=== PATIENT | male | born 1945 | race Caucasian/White ===

== ENCOUNTER → 2018-06-04 06:40 | Outpatient (CLI) | payer OTHER, SELFPAY ==
[2018-06-04 08:18] LABS: Add Manual Diff / Slide Review NO; Basophils Percent Auto 0.3 % (0-2); Eosinophils Percent Auto 1.3 % (2-4); Hematocrit 45.6 % (41-53); Hemoglobin 15.2 g/dL (13.5-17.5); Mean Corpuscular HGB Conc 33.3 % (30-36); Mean Corpuscular Hemoglobin 29.8 PG (26-34); Mean Corpuscular Volume 89.4 fL (80-100); Monocytes Percent Auto 13.4 % (3-14); Neutrophils Absolute Auto 3800 /uL (3000-5900); Platelet Count 166 X10^3/uL (150-400); Red Blood Cell Count 5.11 X10^6/uL (4.5-5.9); Red Cell Distribution Width 14.6 % (11.6-14.8); White Blood Cell Count 6.9 X10^3/uL (4.5-11.0)
[2018-06-04 08:40] LABS: Alanine Aminotransferase 24 IU/L (21-72); Albumin 4.8 g/dL (3.5-5.0); Albumin Globulin Ratio 1.6 (1.0-2.8); Alkaline Phosphatase 64 U/L (38-126); Aspartate Aminotransferase 33 IU/L (17-59); Bilirubin Total 1.4 mg/dL (0.2-1.3); Blood Urea Nitrogen 16 mg/dL (9-20); Calcium 10.1 mg/dL (8.4-10.2); Carbon Dioxide 35 mmol/L (22-32); Chloride 101 mmol/L (98-107); Cholesterol 155 mg/dL (140-199); Estimated Glomerular Filt Rate > 60.0 mL/min (>60); Glucose 91 mg/dL (80-110); HDL Cholesterol 45 mg/dL (40-60); HEMOLYSIS < 15 (0-50); LDL Cholesterol Calculated 98 mg/dL (<100); Potassium 3.9 mmol/L (3.4-5.1); Sodium 146 mmol/L (137-145); Total Protein 7.8 g/dL (6.3-8.2); Triglycerides 62 mg/dL (35-150)
[2018-06-04 09:23] LABS: TSH w/ Reflex to FT4 1.75 uIU/mL (0.47-4.68)
== END ==
PROVIDERS: Visit Provider Family Medicine
DX: E21.3 Hyperparathyroidism, unspecified (principal)
CPT/HCPCS: 36415; 80053; 80061; 84443; 85025

== ENCOUNTER → 2018-07-02 08:11 | Outpatient (CLI) | payer OTHER, SELFPAY ==
--- NOTE | 2018-07-02 08:12 | DI.US.S_ITS ---
PROCEDURE: US ABDOMEN COMPLETE INDICATIONS: elevated bilirubin TECHNIQUE: Real-time scanning was performed of the abdominal and retroperitoneal organs, with image documentation. COMPARISON: [facility], CT, KIDNEY/ URETER/BLADDER, 07/30/2017, 11:40. FINDINGS: Liver: Liver is normal in size and homogeneous in echotexture. Gallbladder: Surgically absent Biliary ducts: Intrahepatic bile ducts are non-dilated. Extrahepatic bile duct caliber measures 8.0 mm. Normal is 6-7 mm or less in diameter, or 10 mm or less post-cholecystectomy. Pancreas: Visualized portions of the pancreas are sonographically normal. Spleen: Spleen is normal in size and homogeneous in echotexture. Kidneys: Kidneys are normal in size and echotexture except for presence of a 8mm echogenic focus at the anterior mid renal cortex on the right,, immediately adjacent to the anterior border of the renal sinus fat without shadowing, potentially a manifestation of a small angiomyolipoma (but review of the prior CT from 07/30/17 suggests that this represents an invagination of renal sinus fat into that area of the cortex). Right kidney measures 10.5 cm long; left kidney measures 12.4 cm long. No hydronephrosis or nephrolithiasis. No solid masses. There is a right sided renal cortical cyst at the inferior cortex measuring up to 2.9 x 2.7 x 2.0 cm Aorta: Visualized aorta is normal in caliber at less than 3 cm. Iliacs: Proximal common iliac arteries are normal in caliber at less than 2.5 cm. IVC: Intrahepatic inferior vena cava is patent. Miscellaneous: No free abdominal fluid. IMPRESSION: No hydronephrosis or nephrolithiasis is found. There is normal appearance of the liver and bile ducts, and the gallbladder is absent. As discussed above there is a non-shadowing echogenic focus involving the anterior cortex abutting the renal sinus fat and on review of the prior CT scan from July of last this appears to represent invagination of a small portion of the renal sinus fat into that area rather than an angiomyolipoma. Dictated by: Raymond Ray M.D. on 07/02/2018 at 9:26 Approved by: Raymond Ray M.D. on 07/02/2018 at 9:31
== END ==
PROVIDERS: Family Provider Internal Medicine; PCP Family Medicine; Visit Provider Family Medicine
DX: R17 Unspecified jaundice (principal); Z86.19 Personal history of other infectious and parasitic diseases
CPT/HCPCS: 76700

== ENCOUNTER → 2019-06-12 06:44 | Outpatient (CLI) | payer OTHER, SELFPAY ==
[2019-06-12 08:13] LABS: Add Manual Diff / Slide Review NO; Basophils Absolute Auto 0 /uL (0-100); Basophils Percent Auto 0.4 % (0-2); Eosinophils Absolute Auto 100 /uL (0-450); Eosinophils Percent Auto 1.1 % (2-4); Lymphocytes Absolute Auto 2100 /uL (1100-4500); Lymphocytes Percent Auto 27.6 % (25-40); Mean Corpuscular HGB Conc 33.3 % (30-36); Monocytes Absolute Auto 1100 /uL (0-900); Monocytes Percent Auto 14.1 % (3-14); Neutrophils Absolute Auto 4300 /uL (1500-7000); Neutrophils Percent Auto 56.8 % (50-75); Platelet Count 173 X10^3/uL (150-400); Red Blood Cell Count 5.33 X10^6/uL (4.5-5.9); Red Cell Distribution Width 14.9 % (11.6-14.8); White Blood Cell Count 7.6 X10^3/uL (4.5-11.0)
[2019-06-12 08:31] LABS: Alanine Aminotransferase 23 IU/L (21-72); Albumin 4.8 g/dL (3.5-5.0); Albumin Globulin Ratio 1.4 (1.0-2.8); Alkaline Phosphatase 71 U/L (38-126); Aspartate Aminotransferase 32 IU/L (17-59); Bilirubin Total 1.7 mg/dL (0.2-1.3); Blood Urea Nitrogen 22 mg/dL (9-20); Calcium 9.7 mg/dL (8.4-10.2); Carbon Dioxide 31 mmol/L (22-32); Chloride 99 mmol/L (98-107); Cholesterol 171 mg/dL (140-199); Estimated Glomerular Filt Rate > 60.0 mL/min (>60); Globulin 3.5 g/dL (1.7-4.1); Glucose 89 mg/dL (80-110); HDL Cholesterol 42 mg/dL (40-60); HEMOLYSIS < 15 (0-50); LDL Cholesterol Calculated 117 mg/dL (<100); Potassium 3.7 mmol/L (3.4-5.1); Sodium 142 mmol/L (137-145); Total Protein 8.3 g/dL (6.3-8.2); Triglycerides 62 mg/dL (35-150)
[2019-06-12 08:58] LABS: Thyroid Stimulating Hormone 1.83 uIU/mL (0.47-4.68)
[2019-06-12 09:12] LABS: Prostate Specific Antigen Scrn < 0.064 ng/mL (0.1-4.0)
== END ==
PROVIDERS: PCP Family Medicine; Visit Provider Family Medicine
DX: E21.3 Hyperparathyroidism, unspecified (principal); I10 Essential (primary) hypertension; Z86.19 Personal history of other infectious and parasitic diseases; Z85.46 Personal history of malignant neoplasm of prostate
CPT/HCPCS: 36415; 80053; 80061; 84443; 85025; G0103

== ENCOUNTER 2019-11-07 10:07 | Day surgery (SDC) | payer OTHER, SELFPAY ==
[2019-11-07 10:25] VITALS: BMI 25.2
[2019-11-07 10:39] VITALS: BP 139/84; PULSE 51; RESP 12; TEMP 35.9; O2SAT 98
[2019-11-07] MEDS: SODIUM CHLORIDE 0.9% 1,000 ML 200 ML IV (10:41)
--- NOTE | 2019-11-07 11:25 | PM.HP.1 ---
History of Present Illness History of Present Illness Date Patient Seen: 11/07/19 Time Patient Seen: 11:26 Chief complaint: [id number] Narrative: This is a 74-year-old man with history of screening colonoscopy 10 years ago which was normal, and a screening colonoscopy 10 years prior to that which was normal. He denies any new symptoms since his last colonoscopy. He denies any hematochezia, melena, unexplained abdominal pain, unexplained weight loss. He says he is otherwise healthy and feels well. ROS: Thirteen system review is otherwise negative other than as mentioned below and in HPI. PE: GENERAL: Well groomed and cooperative. Appears stated age. Answers questions promptly and appropriately. Vital signs noted. HENT: Normocephalic, atraumatic. Hearing intact. Oral mucosa is pink and moist. EYES: Conjunctiva pink, sclera white, no periorbital swelling. CARDIOVASCULAR: Regular rate. No pedal edema. RESPIRATORY: Non-tachypneic, breathing comfortably on room air. GASTROINTESTINAL: Abdomen soft and non-distended GENITALURINARY: No flank tenderness. MUSCULOSKELETAL: Equal tone and mass bilaterally. SKIN: Warm, dry, soft, appropriate color for ethnicity. No other lesions, rashes, or wounds. NEURO: Alert and Oriented X 3. No gross sensory deficits, or cognitive issues. PSYCH: Appropriate affect and mood. Patient History Medical History Hepatitis C (Resolved ~2011) Hyperparathyroidism (Chronic) Hypertension (Chronic ~1994) Kidney stones (Resolved ~2016) Surgical History Anesthesia (Resolved) History of parathyroidectomy (Resolved) Prostate cancer (Resolved ~2003) Status post cholecystectomy (~1974) Family & Social History Family History Mother No problems noted. Social History: household members spouse Tobacco & Substance use: Smoking Status Never smoker alcohol intake current alcohol intake frequency a few times a month Substance Use Type does not use Meds Home Medications and Allergies Home Medications Medication Instructions Recorded Confirmed Type allopurinol 300 mg tablet 300 mg PO DAILY #90 tab 04/11/19 11/07/19 Rx lisinopril 20 1 tab PO DAILY #90 tab 04/11/19 11/07/19 Rx mg-hydrochlorothiazide 25 mg tablet Allergies Allergy/AdvReac Type Severity Reaction Status Date / Time No Known Drug Allergies Allergy Verified 11/07/19 10:20 Exam Vital Signs (past 8 hours): - 11/07/19 10:39 Temperature 96.7 F L Pulse Rate 51 L Respiratory Rate 12 Blood Pressure 139/84 Pulse Oximetry 98 Oxygen Delivery Method Room Air Assessment & Plan Assessment and plan (1) At average risk for colon cancer: Current visit: Yes Status: Acute Assessment & Plan narrative: Risks and benefits of screening colonoscopy and possible polypectomy were discussed with the patient including risk of bleeding, perforation, need for additional procedures, risks of anesthesia. The patient desires to proceed with the colonoscopy procedure. Time Spent With Patient Time with patient: 15-24 minutes
[2019-11-07] MEDS: MIDAZOLAM 5 MG/5 ML VIAL IV (11:51)
[2019-11-07] MEDS: fentaNYL 250 MCG/5 ML INJ IV (11:52)
[2019-11-07 11:53] VITALS: BP 119/74; PULSE 48; RESP 12; TEMP 36.3; O2SAT 96
--- NOTE | 2019-11-07 11:54 | PM.OP.ENDO ---
Operative Date/Time/Diagnoses Date of procedure: 11/07/19 Time of procedure: 11:54 Pre-op diagnosis: Average risk for colon cancer Post-op diagnosis: other (Diverticulosis) Procedure & Clinicians Study performed: Screening colonoscopy Same procedure as scheduled: Yes Indications: Average risk for colon cancer, 10 years since last colonoscopy Surgeon: Kendra Ortega Procedure Notes SCOAP/Timeout: Performed Procedure in detail: The patient was brought to the room and placed in left lateral decubitus position with all bony prominences padded. A time-out was performed and then the patient was given procedural sedation starting with [4] mg of Versed and [100] mcg of fentanyl. A total of 5 mg of Versed and 200 micro g of fentanyl were given for the entire procedure. Vitals were monitored throughout the procedure and remained stable. Once adequately sedated the procedure was begun. A rectal exam was performed revealing [no abnormalities]. The colonoscope was then introduced to the rectum and advanced to the cecum in the usual fashion. []The cecum was identified by the appendiceal orifice, the mucosal tri-fold, and the ileocecal valve. The scope was then retracted while rotating side to side and examining each mucosal fold. Diverticulosis was noticed in the sigmoid colon. No evidence of active her advanced diverticulitis. [] At the conclusion of the procedure retroflexion was performed and [small grade 1-2 internal hemorrhoids without stigmata of bleeding were seen]. The scope was then withdrawn from the rectum the procedure was concluded. The patient tolerated the procedure well and was transferred to the PACU in stable condition. Scope withdrawal time: 8 Sedation minutes: 19 Findings: diverticulosis Specimen(s): none sent Complications: none Impression: Moderate diverticulosis in the sigmoid colon Post-procedure Recommendations: Colonscopy in 10 years Follow up: as needed Disposition: PACU
[2019-11-07 11:58] VITALS: BP 102/74; PULSE 45; RESP 10; O2SAT 96
[2019-11-07 12:03] VITALS: BP 107/70; PULSE 48; RESP 12; O2SAT 98
[2019-11-07 12:20] VITALS: BP 109/66; PULSE 55; RESP 16; TEMP 37; O2SAT 99
== END 2019-11-07 12:30 | disposition home or self-care (01) ==
PROVIDERS: PCP Family Medicine; Referring Provider Surgery; Visit Provider Surgery
PROC: 0DJD8ZZ Inspection of Lower Intestinal Tract, Via Natural or Artificial Opening Endoscopic (ICD-10-PCS; CPT 45378; principal; 2019-11-07 11:30)
DX: Z12.11 Encounter for screening for malignant neoplasm of colon (principal); K57.30 Diverticulosis of large intestine without perforation or abscess without bleeding; K64.0 First degree hemorrhoids
CPT/HCPCS: 45378; 99152; J2250; J3010

== ENCOUNTER → 2020-06-21 06:46 | Outpatient (CLI) | payer OTHER, SELFPAY ==
[2020-06-21 08:16] LABS: Add Manual Diff / Slide Review NO; Basophils Absolute Auto 0 /uL (0-100); Basophils Percent Auto 0.2 % (0-2); Eosinophils Absolute Auto 100 /uL (0-450); Eosinophils Percent Auto 0.9 % (2-4); Hematocrit 45.7 % (41-53); Hemoglobin 14.7 g/dL (13.5-17.5); Lymphocytes Absolute Auto 2100 /uL (1100-4500); Lymphocytes Percent Auto 24.5 % (25-40); Mean Corpuscular HGB Conc 32.1 % (30-36); Mean Corpuscular Hemoglobin 29.2 PG (26-34); Mean Corpuscular Volume 90.7 fL (80-100); Monocytes Absolute Auto 1000 /uL (0-900); Monocytes Percent Auto 11.6 % (3-14); Neutrophils Absolute Auto 5400 /uL (1500-7000); Neutrophils Percent Auto 62.8 % (50-75); Platelet Count 162 X10^3/uL (150-400); Red Blood Cell Count 5.04 X10^6/uL (4.5-5.9); Red Cell Distribution Width 15.2 % (11.6-14.8); White Blood Cell Count 8.7 X10^3/uL (4.5-11.0)
[2020-06-21 08:30] LABS: Alanine Aminotransferase 19 IU/L (<50); Albumin 4.5 g/dL (3.5-5.0); Albumin Globulin Ratio 1.3 (1.0-2.8); Alkaline Phosphatase 65 U/L (38-126); Aspartate Aminotransferase 31 IU/L (17-59); BUN Creatinine Ratio 18.6 (6-22); Bilirubin Total 1.4 mg/dL (0.2-1.3); Blood Urea Nitrogen 19 mg/dL (9-20); Calcium 9.9 mg/dL (8.4-10.2); Carbon Dioxide 34 mmol/L (22-32); Chloride 103 mmol/L (98-107); Cholesterol 164 mg/dL (140-199); Estimated Glomerular Filt Rate > 60.0 mL/min (>60); Globulin 3.4 g/dL (1.7-4.1); Glucose 87 mg/dL (80-110); HDL Cholesterol 41 mg/dL (40-60); HEMOLYSIS < 15 (0-50); LDL Cholesterol Calculated 102 mg/dL (<100); Potassium 3.6 mmol/L (3.4-5.1); Sodium 143 mmol/L (137-145); Total Protein 7.9 g/dL (6.3-8.2); Triglycerides 104 mg/dL (35-150)
[2020-06-21 09:05] LABS: Prostate Specific Antigen Scrn < 0.064 ng/mL (0.1-4.0)
== END ==
PROVIDERS: PCP Family Medicine; Referring Provider Family Medicine; Visit Provider Family Medicine
DX: E21.3 Hyperparathyroidism, unspecified (principal); I10 Essential (primary) hypertension; Z85.46 Personal history of malignant neoplasm of prostate; Z86.19 Personal history of other infectious and parasitic diseases
CPT/HCPCS: 36415; 80053; 80061; 85025; G0103

== ENCOUNTER → 2021-07-11 06:41 | Outpatient (CLI) | payer OTHER, SELFPAY ==
[2021-07-11 07:59] LABS: Add Manual Diff / Slide Review NO; Basophils Absolute Auto 0 /uL (0-100); Basophils Percent Auto 0.5 % (0-2); Eosinophils Absolute Auto 100 /uL (0-450); Eosinophils Percent Auto 1.5 % (2-4); Hematocrit 43.5 % (41-53); Hemoglobin 14.3 g/dL (13.5-17.5); Lymphocytes Absolute Auto 2300 /uL (1100-4500); Lymphocytes Percent Auto 36.5 % (25-40); Mean Corpuscular Hemoglobin 29.3 PG (26-34); Mean Corpuscular Volume 88.8 fL (80-100); Monocytes Absolute Auto 800 /uL (0-900); Neutrophils Absolute Auto 3100 /uL (1500-7000); Neutrophils Percent Auto 49.5 % (50-75); Platelet Count 169 X10^3/uL (150-400); Red Cell Distribution Width 14.8 % (11.6-14.8); White Blood Cell Count 6.3 X10^3/uL (4.5-11.0)
[2021-07-11 08:14] LABS: Alanine Aminotransferase 20 IU/L (<50); Albumin 4.4 g/dL (3.5-5.0); Albumin Globulin Ratio 1.6 (1.0-2.8); Alkaline Phosphatase 59 U/L (38-126); Aspartate Aminotransferase 33 IU/L (17-59); Bilirubin Total 1.5 mg/dL (0.2-1.3); Blood Urea Nitrogen 15 mg/dL (9-20); Calcium 10.1 mg/dL (8.4-10.2); Carbon Dioxide 32 mmol/L (22-32); Chloride 101 mmol/L (98-107); Cholesterol 155 mg/dL (140-199); Estimated Glomerular Filt Rate > 60.0 mL/min (>60); Globulin 2.8 g/dL (1.7-4.1); Glucose 90 mg/dL (80-110); HDL Cholesterol 44 mg/dL (40-60); HEMOLYSIS < 15 (0-50); LDL Cholesterol Calculated 99 mg/dL (<100); Potassium 3.8 mmol/L (3.4-5.1); Sodium 141 mmol/L (137-145); Total Protein 7.2 g/dL (6.3-8.2); Triglycerides 62 mg/dL (35-150)
[2021-07-11 09:08] LABS: Prostate Specific Antigen Scrn < 0.064 ng/mL (0.1-4.0)
== END ==
PROVIDERS: PCP Family Medicine; Referring Provider Family Medicine; Visit Provider Family Medicine
DX: E21.3 Hyperparathyroidism, unspecified (principal); I10 Essential (primary) hypertension; Z85.46 Personal history of malignant neoplasm of prostate; Z12.5 Encounter for screening for malignant neoplasm of prostate
CPT/HCPCS: 36415; 80053; 80061; 85025; G0103

== ENCOUNTER → 2022-07-07 06:48 | Outpatient (CLI) | payer OTHER, SELFPAY ==
[2022-07-07 09:46] LABS: Add Manual Diff / Slide Review NO; Basophils Absolute Auto 0 /uL (0-100); Basophils Percent Auto 0.4 % (0-2); Eosinophils Absolute Auto 100 /uL (0-450); Hematocrit 44.4 % (41-53); Hemoglobin 14.7 g/dL (13.5-17.5); Lymphocytes Absolute Auto 1700 /uL (1100-4500); Lymphocytes Percent Auto 24.6 % (25-40); Mean Corpuscular HGB Conc 33.1 % (30-36); Mean Corpuscular Volume 84.5 fL (80-100); Monocytes Absolute Auto 800 /uL (0-900); Monocytes Percent Auto 12.5 % (3-14); Neutrophils Absolute Auto 4100 /uL (1500-7000); Neutrophils Percent Auto 61.5 % (50-75); Platelet Count 176 X10^3/uL (150-400); Red Blood Cell Count 5.25 X10^6/uL (4.5-5.9); Red Cell Distribution Width 13.8 % (11.6-14.8); White Blood Cell Count 6.7 X10^3/uL (4.5-11.0)
[2022-07-07 10:36] LABS: Alanine Aminotransferase 30 IU/L (<50); Albumin 4.3 g/dL (3.5-5.0); Albumin Globulin Ratio 1.4 (1.0-2.8); Alkaline Phosphatase 68 U/L (38-126); Aspartate Aminotransferase 33 IU/L (17-59); BUN Creatinine Ratio 13.8 (6-22); Bilirubin Total 2.3 mg/dL (0.2-1.3); Blood Urea Nitrogen 15 mg/dL (9-20); Calcium 9.5 mg/dL (8.4-10.2); Carbon Dioxide 29 mmol/L (22-32); Chloride 100 mmol/L (98-107); Cholesterol 133 mg/dL (140-199); Estimated Glomerular Filt Rate > 60 mL/min (>60); Globulin 3.1 g/dL (1.7-4.1); Glucose 77 mg/dL (80-110); HDL Cholesterol 38 mg/dL (40-60); HEMOLYSIS < 15 (0-50); LDL Cholesterol Calculated 83 mg/dL (<100); Potassium 3.6 mmol/L (3.4-5.1); Sodium 141 mmol/L (137-145); Total Protein 7.4 g/dL (6.3-8.2); Triglycerides 61 mg/dL (35-150)
[2022-07-07 11:01] LABS: Thyroid Stimulating Hormone 1.36 uIU/mL (0.47-4.68)
[2022-07-07 11:09] LABS: Prostate Specific Antigen Scrn < 0.064 ng/mL (0.1-4.0)
== END ==
PROVIDERS: PCP Family Medicine; Referring Provider Family Medicine; Visit Provider Family Medicine
DX: Z12.5 Encounter for screening for malignant neoplasm of prostate (principal); E21.3 Hyperparathyroidism, unspecified; I10 Essential (primary) hypertension; Z85.46 Personal history of malignant neoplasm of prostate
CPT/HCPCS: 36415; 80053; 80061; 84443; 85025; G0103

== ENCOUNTER → 2022-08-16 06:33 | Outpatient (CLI) | payer OTHER, SELFPAY ==
[2022-08-16 09:12] LABS: Alanine Aminotransferase 27 IU/L (<50); Albumin 4.4 g/dL (3.5-5.0); Albumin Globulin Ratio 1.5 (1.0-2.8); Alkaline Phosphatase 64 U/L (38-126); Aspartate Aminotransferase 33 IU/L (17-59); BUN Creatinine Ratio 19.3 (6-22); Bilirubin Direct 0.1 mg/dL (0.0-0.4); Bilirubin Total 1.5 mg/dL (0.2-1.3); Blood Urea Nitrogen 21 mg/dL (9-20); Calcium 9.8 mg/dL (8.4-10.2); Carbon Dioxide 31 mmol/L (22-32); Chloride 100 mmol/L (98-107); Estimated Glomerular Filt Rate > 60 mL/min (>60); Globulin 2.9 g/dL (1.7-4.1); Glucose 82 mg/dL (80-110); HEMOLYSIS < 15 (0-50); Potassium 3.9 mmol/L (3.4-5.1); Sodium 139 mmol/L (137-145); Total Protein 7.3 g/dL (6.3-8.2)
== END ==
PROVIDERS: PCP Family Medicine; Referring Provider Family Medicine; Visit Provider Family Medicine
DX: E80.6 Other disorders of bilirubin metabolism (principal); Z86.19 Personal history of other infectious and parasitic diseases
CPT/HCPCS: 36415; 80053; 82248

== ENCOUNTER → 2023-07-25 06:33 | Outpatient (CLI) | payer OTHER, SELFPAY ==
[2023-07-25 08:19] LABS: Alanine Aminotransferase 16 IU/L (<50); Albumin 4.3 g/dL (3.5-5.0); Albumin Globulin Ratio 1.5 (1.0-2.8); Alkaline Phosphatase 59 U/L (38-126); Aspartate Aminotransferase 26 IU/L (17-59); BUN Creatinine Ratio 17.6 (6-22); Bilirubin Total 1.7 mg/dL (0.2-1.3); Blood Urea Nitrogen 18 mg/dL (9-20); Calcium 9.7 mg/dL (8.4-10.2); Carbon Dioxide 31 mmol/L (22-32); Chloride 102 mmol/L (98-107); Estimated Glomerular Filt Rate > 60 mL/min (>60); Globulin 2.8 g/dL (1.7-4.1); Glucose 83 mg/dL (80-110); HEMOLYSIS < 15 (0-50); Potassium 3.8 mmol/L (3.4-5.1); Sodium 139 mmol/L (137-145); Total Protein 7.1 g/dL (6.3-8.2); Uric Acid 6.8 mg/dL (3.5-8.5)
[2023-07-25 08:45] LABS: Prostate Specific Antigen Scrn < 0.064 ng/mL (0.1-4.0)
== END ==
PROVIDERS: PCP Family Medicine; Referring Provider Family Medicine; Visit Provider Family Medicine
DX: Z12.5 Encounter for screening for malignant neoplasm of prostate (principal); M10.9 Gout, unspecified; I10 Essential (primary) hypertension; Z85.46 Personal history of malignant neoplasm of prostate; E21.3 Hyperparathyroidism, unspecified
CPT/HCPCS: 36415; 80053; 82397; 84550; G0103

== ENCOUNTER → 2024-04-07 06:34 | Outpatient (CLI) | payer OTHER, SELFPAY ==
[2024-04-07 08:14] LABS: Alanine Aminotransferase 24 IU/L (<50); Albumin 4.5 g/dL (3.5-5.0); Albumin Globulin Ratio 1.6 (1.0-2.8); Alkaline Phosphatase 62 U/L (38-126); Aspartate Aminotransferase 41 IU/L (17-59); BUN Creatinine Ratio 13.1 (6-22); Blood Urea Nitrogen 16 mg/dL (9-20); Calcium 9.4 mg/dL (8.4-10.2); Carbon Dioxide 31 mmol/L (22-32); Chloride 99 mmol/L (98-107); Estimated Glomerular Filt Rate > 60 mL/min (>60); Globulin 2.8 g/dL (1.7-4.1); Glucose 91 mg/dL (80-110); HEMOLYSIS < 15 (0-50); Potassium 4.1 mmol/L (3.4-5.1); Sodium 137 mmol/L (137-145); Total Protein 7.3 g/dL (6.3-8.2); Uric Acid 7.4 mg/dL (3.5-8.5)
[2024-04-07 08:44] LABS: Prostate Specific Antigen Scrn < 0.064 ng/mL (0.1-4.0)
== END ==
PROVIDERS: PCP Family Medicine; Referring Provider Family Medicine; Visit Provider Family Medicine
DX: Z12.5 Encounter for screening for malignant neoplasm of prostate (principal); M10.9 Gout, unspecified; I10 Essential (primary) hypertension; Z85.46 Personal history of malignant neoplasm of prostate
CPT/HCPCS: 36415; 80053; 84550; G0103

== ENCOUNTER 2024-06-24 14:30 | Emergency (ER) | payer OTHER, SELFPAY ==
[2024-06-24] VITALS (8 sets, daily range): BP systolic 122–169; BP diastolic 69–77; PULSE 51–83; RESP 14–24; O2SAT 92–99; BMI 25.1
--- NOTE | 2024-06-24 14:33 | ED.SYNCOPE ---
HPI - Syncope General Chief Complaint: Syncope Stated Complaint: syncope, r shoulder injury, sent by pcp Time Seen by Provider: 06/24/24 14:33 History of Present Illness HPI narrative: Patient is a 79-year-old male history of hypertension gout comes into the ED for evaluation of right shoulder pain and syncope. States that this happened at around 4:30 p.m. yesterday. States that he was moving his bowels then he stood up the passed out. States that he woke up on the floor felt weak and had some right shoulder pain. However he currently is not having any symptoms at this time. States that he called his primary care doctor and instructed come into the ED for further evaluation treatment. Patient is not complaining of any headache visual disturbances chest pain shortness breath fever chills nausea vomiting abdominal pain or any other GI/ symptoms time. Not On any blood thinners Related Data Previous Rx's Medication Instructions Recorded lisinopril 20 1 tab PO DAILY #90 tabs 07/23/23 mg-hydrochlorothiazide 25 mg tablet colchicine 0.6 mg tablet 0.6 mg PO DAILY PRN gout attacks 05/05/24 #30 tabs prednisone 20 mg tablet 40 mg (2 x 20 mg) PO DAILY #10 tabs 05/05/24 Allergies Allergy/AdvReac Type Severity Reaction Status Date / Time No Known Drug Allergies Allergy Verified 05/05/24 10:13 Review of Systems Review of Systems Narrative: General: Denies fever, chills, weight loss HEENT: Denies headache, eye drainage, eye irritation, head trauma, sore throat, voice change Cardiovascular: Denies any chest pain, palpitations, shortness of breath, tachycardia Respiratory: Denies any shortness of breath, cough, wheeze, stridor GI/: Denies any abdominal pain, nausea, vomiting, diarrhea, bright red blood per rectum, melanotic stools, urinary frequency, urinary retention, dysuria, hematuria MSK: Right shoulder pain Skin: Denies any rashes, lesions, discoloration Neuro: Positive lightheadedness, dizziness, syncope Psych: Denies SI/HI Patient History Medical History (Updated 06/24/24 @ 16:35 by Ariel Foote DO) Medicare annual wellness visit, subsequent Encounter for well adult exam without abnormal findings Skin cancer (~1994) Gout (~1994) Kidney stones (~2016) Hepatitis C (~2011) Hypertension (~1994) Hyperparathyroidism Surgical History Anesthesia History of parathyroidectomy Prostate cancer (~2003) Status post cholecystectomy (~1974) Family History Mother No problems noted. Social History marital status: number of children: 2 household members: spouse education level: college occupational status: employed Smoking Status: Never smoker alcohol intake: current substance use type: does not use Smoking Status: Never smoker alcohol intake frequency: a few times a month Substance Use Type: does not use Exam Narrative Exam Narrative: General: Cooperative, comfortable, well-developed, not in acute distress HEENT: Normocephalic, atraumatic, PERRLA, normal sclera, eyelids normal, Neck: Active full range of motion, atraumatic Chest: Normal to inspection, negative crepitus, no overlying erythema ecchymosis Respiratory: Normal respiratory effort, not in acute respiratory distress, clear to auscultation bilaterally negative cough, wheeze, tachypnea, rhonchi, rales Cardiology: Regular rate rhythm negative gallop, murmur, rubs GI/: Normal to inspection, soft, nonrigid, no tenderness to palpation, exam deferred MSK: Full range of active range of motion of all 4 extremities, atraumatic Skin: No rashes lesions noted Neuro: Alert awake oriented x3, moves all 4 extremities spontaneously, cranial nerves intact, able to answer all questions appropriately follows commands appropriately Psych: Cooperative, negative suicidal or homicidal ideations Initial Vital Signs Initial Vital Signs: Vital Signs Pulse Oximetry 92 06/24/24 14:34 Course Orders Ordered: ED Orders 06/24/24 14:37 CT angio head and neck Stat XR chest 1V Stat EKG-12 Lead Stat 06/24/24 14:38 CT head/brain wo con Stat XR shoulder RT min 2V Stat 06/24/24 14:42 Complete Blood Count AUTO DIFF Stat Comprehensive Metabolic Panel Stat Troponin I Stat Vital Signs Vital signs: Vital Signs - 8 hr 06/24/24 14:34 06/24/24 14:35 06/24/24 14:35 Pulse Rate 62 Respiratory Rate Blood Pressure 169/77 H Pulse Oximetry 92 97 Oxygen Delivery Method 06/24/24 14:37 06/24/24 15:00 06/24/24 15:00 Pulse Rate 83 58 L Respiratory Rate 24 20 Blood Pressure 169/77 H 127/69 Pulse Oximetry 97 98 Oxygen Delivery Method Room Air 06/24/24 15:33 Pulse Rate 54 L Respiratory Rate Blood Pressure Pulse Oximetry 94 Oxygen Delivery Method MDM - Syncope Differential Diagnosis Differential diagnosis: Likely syncope due to orthostatic hypotension, vasovagal syncope, subarachnoid hemorrhage, dehydration and other (Electrolyte abnormality) Lab Data 06/24/24 14:42 06/24/24 14:42 Labs: Lab Results 06/24/24 Range/Units 14:42 WBC 10.2 (4.5-11.0) X10^3/uL RBC 4.57 (4.5-5.9) X10^6/uL Hgb 13.3 L (13.5-17.5) g/dL Hct 39.0 L (41-53) % MCV 85.3 (80-100) fL MCH 29.1 (26-34) PG MCHC 34.1 (30-36) % RDW 14.6 (11.6-14.8) % Plt Count 172 (150-400) X10^3/uL Neut % (Auto) 77.5 H (50-75) % Lymph % (Auto) 15.0 L (25-40) % Dixie % (Auto) 6.7 (3-14) % Eos % (Auto) 0.5 L (2-4) % Baso % (Auto) 0.3 (0-2) % Neut # (Auto) 7900 H (9876-1642) /uL Lymph # (Auto) 1500 (4260-7048) /uL Dixie # (Auto) 700 (0-900) /uL Eos # (Auto) 0 (0-450) /uL Baso # (Auto) 0 (0-100) /uL Sodium 141 (137-145) mmol/L Potassium 3.3 L (3.4-5.1) mmol/L Chloride 102 (98-107) mmol/L Carbon Dioxide 29 (22-32) mmol/L BUN 19 (9-20) mg/dL Creatinine 1.13 (0.66-1.25) mg/dL Estimated GFR > 60 (>60) mL/min BUN/Creatinine Ratio 16.8 (6-22) Glucose 113 H (80-110) mg/dL Calcium 9.6 (8.4-10.2) mg/dL Total Bilirubin 1.0 (0.2-1.3) mg/dL AST 31 (17-59) IU/L ALT 23 (<50) IU/L Alkaline Phosphatase 70 (38-126) U/L Troponin I 0.016 (0.01-0.034) ng/mL Total Protein 7.3 (6.3-8.2) g/dL Albumin 4.4 (3.5-5.0) g/dL Globulin 2.9 (1.7-4.1) g/dL Albumin/Globulin Ratio 1.5 (1.0-2.8) Imaging Data Chest x-ray: Radiologist's Impression: [place] [address] XRay Report Signed Patient: Nilesh Duarte MR#: [id number] : 1945 Acct:[id number] Age/Sex: 79 / M Date of Service: 06/24/24 Loc: ED Accession Number: [id number] Procedure: XR chest 1V Ordering Provider: Ariel Foote D.O. PROCEDURE: XR CHEST 1V INDICATIONS: syncope TECHNIQUE: One view of the chest was acquired. COMPARISON: None. FINDINGS: Surgical changes and devices: None. Lungs and pleura: Lungs are clear. No pleural effusions or pneumothorax. Mediastinum: Mediastinal contours appear normal. Heart size is enlarged. Bones and chest wall: No suspicious bony lesions. Overlying soft tissues appear unremarkable. IMPRESSION: No acute pulmonary process. CT scan - head: Radiologist's Impression: [place] [address] CT Scan Report Signed Patient: Nilesh Duarte MR#: [id number] : 1945 Acct:[id number] Age/Sex: 79 / M Date of Service: 06/24/24 Loc: ED Accession Number: [id number] Procedure: CT head/brain wo con Ordering Provider: Ariel Foote D.O. PROCEDURE: CT HEAD/BRAIN WO CON INDICATIONS: syncope TECHNIQUE: Noncontrast 4.5 mm thick angled axial sections acquired from the foramen magnum to the vertex, with coronal and sagittal reformats. For radiation dose reduction, the following was used: automated exposure control, adjustment of mA and/or kV according to patient size. COMPARISON: [facility], CT, CT ANGIO HEAD AND NECK, 06/24/2024, 15:16. FINDINGS: Image quality: Diagnostic. CSF spaces: Basal cisterns are patent. No extra-axial fluid collections. The ventricles are symmetric in size and shape. Brain: No intracranial bleeds or masses. There is cerebral volume loss for age, with resultant ventricular and sulcal prominence. There are periventricular and deep white matter chronic small vessel ischemic changes. There is intracranial internal carotid artery atherosclerosis. Skull and face: Calvarium and visualized facial bones appear intact, without suspicious lesions. Sinuses: Visualized sinuses and mastoids are clear. IMPRESSION: Noncontrast head CT within normal limits for age. If there is strong clinical suspicion for an acute stroke, please consider a brain MRI for further evaluation, as it is more sensitive (assuming that there is no contraindication to MRI). CTA - brain/neck: Radiologist's Impression: [place] [address] CT Scan Report Signed Patient: Nilesh Duarte MR#: [id number] : 1945 Acct:[id number] Age/Sex: 79 / M Date of Service: 06/24/24 Loc: ED Accession Number: [id number] Procedure: CT angio head and neck Ordering Provider: Ariel Foote D.O. PROCEDURE: CT ANGIO HEAD AND NECK INDICATIONS: syncope TECHNIQUE: After the administration of intravenous contrast, 1 mm thick sections acquired from the aortic arch through the [place] of [place]. 3-dimensional dwdlnkz-ltxxqzklu-omcbqiwsiv (MIP) and/or volume rendering reformats were acquired of the central intracranial vasculature and neck separately. For radiation dose reduction, the following was used: automated exposure control, adjustment of mA and/or kV according to patient size. COMPARISON: [facility], CT, CT PARATHYROID W&WO CON, 07/03/2016, 7:03. [facility], CT, CT HEAD/BRAIN WO CON, 06/24/2024, 15:16. FINDINGS: Image quality: Limited by bolus timing, with venous contamination. There is artifact associated with the metallic hardware. Artifact from the metallic hardware is reduced by metal reconstruction algorithm. BRAIN: CSF spaces: Ventricles are normal in size and shape. Basal cisterns are patent. No extra-axial fluid collections. Brain: No significant abnormality of the brain can be seen. Skull and face: Calvarium and facial bones appear intact, without suspicious lesions. Orbits appear normal. Sinuses: Sinuses and mastoids are clear. HEAD CT ANGIOGRAPHY: Anterior circulation: Intracranial internal carotid arteries are normal in size and flow. The flow within the paired anterior cerebral arteries is normal and symmetric. The flow within the middle cerebral arteries is normal and symmetric. The anterior communicating artery is not well seen. No aneurysms are seen. Posterior circulation: The right V4 segment is within normal limits. The left V4 segment largely terminates in the left posterior inferior cerebellar artery. There is a normal appearing basilar artery. There is a prominent right posterior communicating artery seen, with an accompanying diminutive right P1 segment. This is attributed to a type origin of the right posterior cerebral artery, which is considered to be a normal developmental variant of typically no clinical consequence. The flow within the posterior cerebral arteries is normal and symmetric. No aneurysms are seen. NECK CT ANGIOGRAPHY: Carotid system: The great vessels demonstrate a conventional anatomy as they arise from the aortic arch. The origins of the common carotid arteries appear patent. The common carotid arteries demonstrate normal caliber and courses. The bifurcation regions are both widely patent. The internal carotid arteries demonstrate normal calibers and courses. Posterior circulation: The origins of the vertebral arteries both appear widely patent. The more superior extracranial portions of both vertebral arteries also demonstrate normal courses and calibers. The right vertebral artery is dominant to the left. Soft tissues: Visualized neck soft tissues demonstrate no suspicious abnormalities. Bones: No suspicious bony lesions. Visualized cervical spine appears normally aligned. Note is made of a left maxillary sinus mucous retention cyst. Moderate cervical spine degenerative change can be seen. IMPRESSION: No significant intracranial arterial abnormality is seen. No significant abnormality is seen within the arteries of the neck. Additional findings: Cahlyj-su-Agxrqa developmental anomalies Moderate cervical spine degenerative change Extremity x-ray #1: Radiologist's Impression: [address] [address] XRay Report Signed Patient: Nilesh Duarte MR#: [id number] : 1945 Acct:[id number] Age/Sex: 79 / M Date of Service: 06/24/24 Loc: ED Accession Number: [id number] Procedure: XR shoulder RT min 2V Ordering Provider: Ariel Foote D.O. PROCEDURE: XR SHOULDER RT MIN 2V INDICATIONS: pain after fall TECHNIQUE: 3 views of the shoulder were acquired. COMPARISON: None. FINDINGS: Bones: No fractures or dislocations. No suspicious bony lesions. Visualized ribs appear intact. Soft tissues: No suspicious soft tissue calcifications. Calcific tendinitis. IMPRESSION: No visualized acute fracture or dislocation. However, if clinical concern and/or pain persist, short interval imaging followup in 7-10 days is recommended, as occult injury cannot be definitively excluded. ECG Data Attestation: I personally reviewed and interpreted this ECG as follows: Interpretation: EKG interpreted ED physician sinuses 60 beats per minute, QTC 434, left axis deviation, nonspecific ST changes, no STEMI MDM Narrative Medical decision making narrative: Patient is a 79-year-old male with history of hypertension and gout presenting for syncopal episode that happened 24 hours prior to arrival. He states that he was using the restroom had a bowel movement stood up felt lightheaded dizzy and fell and passed out. States that he woke up felt tired and had some right shoulder pain but these have since resolved. Called his primary care doctor and was instructed to come into the ED for further evaluation treatment. Patient with low [place] syncope score (-1). Patient with CT scan not showing any acute intracranial hemorrhage or other acute findings. Chest x-ray without pneumonia, lab work unremarkable. Patient most likely having vasovagal syncope after having a bowel movement. Patient was given strict return precautions he will be safe for discharge home with outpatient follow up Discharge Plan Departure Patient Disposition: Home Clinical Impression: Syncope, Acute pain of right shoulder Activity Restrictions/Additional Instructions: Please follow up with primary care and Cardiology in outpatient setting Please read the discharge instructions sheet carefully and bring all papers to all doctor follow-up visits, as it may contain information that your doctor may want to see. Disease processes change and evolve, if your symptoms worsen or if you develop any new symptoms that are concerning to you please return for evaluation. Your evaluation today does not show any evidence of any life-threatening/serious illnesses requiring admission to the hospital or surgery. Please follow-up with your doctor for re-evaluation in approximately 1 day. Seek immediate medical attention for any worrisome symptoms. Prescriptions: No Action prednisone 20 mg tablet 40 mg PO DAILY Qty: 10 1RF Rx Instructions: take two tablets for 5 days colchicine 0.6 mg tablet 0.6 mg PO DAILY PRN (Reason: gout attacks) Qty: 30 1RF Rx Instructions: take 2 tablets with onset of gout attack, may take additional tablet one tablet after lisinopril-hydrochlorothiazide 20-25 mg tablet 1 tab PO DAILY Qty: 90 3RF Referrals: Marcos Tanner DO [Primary Care Provider] - Stand Alone Forms: Patient Portal/API
--- NOTE | 2024-06-24 14:37 | EKG_ITS ---
[facility] [address] [place] [id number] Test Date: 2024-06-24 Pat Name: Nilesh Duarte Department: [facility] Room: Gender: Male [employer]: LETI : 1945 Requested By: Order Number: [id number] Reading MD: Ariel Renee Measurements Intervals [place] Rate: 60 P: FL: 182 QRS: -37 QRSD: 122 T: -3 QT: 434 QTc: 434 Interpretive Statements Normal sinus rhythm Left axis deviation Minimal voltage criteria for LVH, may be normal variant ( R in aVL ) Possible Anterior infarct , age undetermined Electronically Signed On 06-25-2024 18:07:39 PDT by Ariel Renee
--- NOTE | 2024-06-24 14:37 | DI.RAD.S_ITS ---
PROCEDURE: XR CHEST 1V INDICATIONS: syncope TECHNIQUE: One view of the chest was acquired. COMPARISON: None. FINDINGS: Surgical changes and devices: None. Lungs and pleura: Lungs are clear. No pleural effusions or pneumothorax. Mediastinum: Mediastinal contours appear normal. Heart size is enlarged. Bones and chest wall: No suspicious bony lesions. Overlying soft tissues appear unremarkable. IMPRESSION: No acute pulmonary process. Dictated by: Marilou Malin M.D. on 06/24/2024 at 15:28 Approved by: Marilou Malin M.D. on 06/24/2024 at 15:28
--- NOTE | 2024-06-24 14:37 | DI.CT.S_ITS ---
PROCEDURE: CT ANGIO HEAD AND NECK INDICATIONS: syncope TECHNIQUE: After the administration of intravenous contrast, 1 mm thick sections acquired from the aortic arch through the [place] of [place]. 3-dimensional labiafo-rnnrtaocn-bwqplfikug (MIP) and/or volume rendering reformats were acquired of the central intracranial vasculature and neck separately. For radiation dose reduction, the following was used: automated exposure control, adjustment of mA and/or kV according to patient size. COMPARISON: [facility], CT, CT PARATHYROID W&WO CON, 07/03/2016, 7:03. [facility], CT, CT HEAD/BRAIN WO CON, 06/24/2024, 15:16. FINDINGS: Image quality: Limited by bolus timing, with venous contamination. There is artifact associated with the metallic hardware. Artifact from the metallic hardware is reduced by metal reconstruction algorithm. BRAIN: CSF spaces: Ventricles are normal in size and shape. Basal cisterns are patent. No extra-axial fluid collections. Brain: No significant abnormality of the brain can be seen. Skull and face: Calvarium and facial bones appear intact, without suspicious lesions. Orbits appear normal. Sinuses: Sinuses and mastoids are clear. HEAD CT ANGIOGRAPHY: Anterior circulation: Intracranial internal carotid arteries are normal in size and flow. The flow within the paired anterior cerebral arteries is normal and symmetric. The flow within the middle cerebral arteries is normal and symmetric. The anterior communicating artery is not well seen. No aneurysms are seen. Posterior circulation: The right V4 segment is within normal limits. The left V4 segment largely terminates in the left posterior inferior cerebellar artery. There is a normal appearing basilar artery. There is a prominent right posterior communicating artery seen, with an accompanying diminutive right P1 segment. This is attributed to a type origin of the right posterior cerebral artery, which is considered to be a normal developmental variant of typically no clinical consequence. The flow within the posterior cerebral arteries is normal and symmetric. No aneurysms are seen. NECK CT ANGIOGRAPHY: Carotid system: The great vessels demonstrate a conventional anatomy as they arise from the aortic arch. The origins of the common carotid arteries appear patent. The common carotid arteries demonstrate normal caliber and courses. The bifurcation regions are both widely patent. The internal carotid arteries demonstrate normal calibers and courses. Posterior circulation: The origins of the vertebral arteries both appear widely patent. The more superior extracranial portions of both vertebral arteries also demonstrate normal courses and calibers. The right vertebral artery is dominant to the left. Soft tissues: Visualized neck soft tissues demonstrate no suspicious abnormalities. Bones: No suspicious bony lesions. Visualized cervical spine appears normally aligned. Note is made of a left maxillary sinus mucous retention cyst. Moderate cervical spine degenerative change can be seen. IMPRESSION: No significant intracranial arterial abnormality is seen. No significant abnormality is seen within the arteries of the neck. Additional findings: Llqryr-en-Exhyad developmental anomalies Moderate cervical spine degenerative change Any quantitative measurements of stenosis were performed using NASCET criteria. Dictated by: Kevin Chapin M.D. on 06/24/2024 at 14:57 Approved by: Kevin Chapin M.D. on 06/24/2024 at 15:01
--- NOTE | 2024-06-24 14:38 | DI.CT.S_ITS ---
PROCEDURE: CT HEAD/BRAIN WO CON INDICATIONS: syncope TECHNIQUE: Noncontrast 4.5 mm thick angled axial sections acquired from the foramen magnum to the vertex, with coronal and sagittal reformats. For radiation dose reduction, the following was used: automated exposure control, adjustment of mA and/or kV according to patient size. COMPARISON: [facility], CT, CT ANGIO HEAD AND NECK, 06/24/2024, 15:16. FINDINGS: Image quality: Diagnostic. CSF spaces: Basal cisterns are patent. No extra-axial fluid collections. The ventricles are symmetric in size and shape. Brain: No intracranial bleeds or masses. There is cerebral volume loss for age, with resultant ventricular and sulcal prominence. There are periventricular and deep white matter chronic small vessel ischemic changes. There is intracranial internal carotid artery atherosclerosis. Skull and face: Calvarium and visualized facial bones appear intact, without suspicious lesions. Sinuses: Visualized sinuses and mastoids are clear. IMPRESSION: Noncontrast head CT within normal limits for age. If there is strong clinical suspicion for an acute stroke, please consider a brain MRI for further evaluation, as it is more sensitive (assuming that there is no contraindication to MRI). Dictated by: Kevin Chapin M.D. on 06/24/2024 at 14:56 Approved by: Kevin Chapin M.D. on 06/24/2024 at 14:57
--- NOTE | 2024-06-24 14:38 | DI.RAD.S_ITS ---
PROCEDURE: XR SHOULDER RT MIN 2V INDICATIONS: pain after fall TECHNIQUE: 3 views of the shoulder were acquired. COMPARISON: None. FINDINGS: Bones: No fractures or dislocations. No suspicious bony lesions. Visualized ribs appear intact. Soft tissues: No suspicious soft tissue calcifications. Calcific tendinitis. IMPRESSION: No visualized acute fracture or dislocation. However, if clinical concern and/or pain persist, short interval imaging followup in 7-10 days is recommended, as occult injury cannot be definitively excluded. Dictated by: Marilou Malin M.D. on 06/24/2024 at 15:29 Approved by: Marilou Malin M.D. on 06/24/2024 at 15:29
[2024-06-24 14:49] LABS: Add Manual Diff / Slide Review NO; Basophils Absolute Auto 0 /uL (0-100); Basophils Percent Auto 0.3 % (0-2); Eosinophils Absolute Auto 0 /uL (0-450); Eosinophils Percent Auto 0.5 % (2-4); Hemoglobin 13.3 g/dL (13.5-17.5); Lymphocytes Absolute Auto 1500 /uL (1100-4500); Mean Corpuscular HGB Conc 34.1 % (30-36); Mean Corpuscular Hemoglobin 29.1 PG (26-34); Mean Corpuscular Volume 85.3 fL (80-100); Monocytes Absolute Auto 700 /uL (0-900); Monocytes Percent Auto 6.7 % (3-14); Neutrophils Absolute Auto 7900 /uL (1500-7000); Neutrophils Percent Auto 77.5 % (50-75); Platelet Count 172 X10^3/uL (150-400); Red Blood Cell Count 4.57 X10^6/uL (4.5-5.9); Red Cell Distribution Width 14.6 % (11.6-14.8); White Blood Cell Count 10.2 X10^3/uL (4.5-11.0)
[2024-06-24 15:02] LABS: Alanine Aminotransferase 23 IU/L (<50); Albumin 4.4 g/dL (3.5-5.0); Albumin Globulin Ratio 1.5 (1.0-2.8); Alkaline Phosphatase 70 U/L (38-126); Aspartate Aminotransferase 31 IU/L (17-59); BUN Creatinine Ratio 16.8 (6-22); Blood Urea Nitrogen 19 mg/dL (9-20); Calcium 9.6 mg/dL (8.4-10.2); Carbon Dioxide 29 mmol/L (22-32); Chloride 102 mmol/L (98-107); Estimated Glomerular Filt Rate > 60 mL/min (>60); Globulin 2.9 g/dL (1.7-4.1); Glucose 113 mg/dL (80-110); HEMOLYSIS < 15 (0-50); Potassium 3.3 mmol/L (3.4-5.1); Sodium 141 mmol/L (137-145); Total Protein 7.3 g/dL (6.3-8.2)
[2024-06-24 15:13] LABS: Troponin I 0.016 ng/mL (0.01-0.034)
== END 2024-06-24 16:45 | disposition home or self-care (01) ==
PROVIDERS: Emergency Provider Student in an Organized Health Care Education/Training Program; PCP Family Medicine
DX: R55 Syncope and collapse (principal); R42 Dizziness and giddiness; M25.511 Pain in right shoulder; I10 Essential (primary) hypertension
CPT/HCPCS: 70450; 70496; 70498; 71045; 73030; 80053; 84484; 85025; 93005; 99283; 99284; Q9967

== ENCOUNTER → 2024-07-30 14:59 | Outpatient (CLI) | payer OTHER, SELFPAY | LOC: CAR 15:00 | PROVIDERS: PCP Family Medicine; Referring Provider Family Medicine; Visit Provider Family Medicine | DX: R55 Syncope and collapse (principal) | CPT/HCPCS: 93246 ==

== ENCOUNTER → 2024-10-21 07:39 | Outpatient (CLI) | payer OTHER, SELFPAY ==
--- NOTE | 2024-10-21 07:40 | DI.RAD.S_ITS ---
PROCEDURE: XR CHEST 2V INDICATIONS: Cough TECHNIQUE: 2 views of the chest were acquired. COMPARISON: [facility], CR, XR CHEST 1V, 06/24/2024, 14:42. FINDINGS: Surgical changes and devices: None. Lungs and pleura: Lungs are clear. No pleural effusions or pneumothorax. Mediastinum: Aorta is tortuous. Cardiac silhouette is normal in size. Bones and chest wall: No suspicious bony abnormalities. Soft tissues appear unremarkable. IMPRESSION: No acute cardiopulmonary abnormality is seen. Approved by: Kirk Salguero M.D. on 10/21/2024 at 8:15
== END ==
PROVIDERS: PCP Family Medicine; Referring Provider Physician Assistant Surgical; Visit Provider Physician Assistant Surgical
DX: R05.9 Cough, unspecified (principal)
CPT/HCPCS: 71046

== ENCOUNTER → 2024-10-30 07:49 | Outpatient (CLI) | payer OTHER, SELFPAY ==
--- NOTE | 2024-10-30 07:51 | DI.ECHO.S_ITS ---
[facility] : : [address] : : [place] : : [id number] : : Phone: [phone] Echocardiogram Report + + :Name: CARLO AHUMADA Study Date: 10/30/2024 Height: 70 in : :[facility] ReadingLocation: Weight: 175 lb : : Gender: Male BSA: 2.0 m2 : :: 1945 Age: 79 yrs BP: 120/83 mmHg: :Reason For Study: SYNCOPE : :Ordering Physician: CHALINO, : :MYRON Performed By: Marc Hager : :Referring: MYRON ALLRED : + + Interpretation Summary 1. The left ventricular contractility is mildly compromised. Estimate ejection fraction is 40 to 45% with global hypokinesis. Mild concentric LVH. Grade 1 diastolic dysfunction. Prominent trabeculation noted suggesting noncompaction. 2. The right ventricular contractility is normal. 3. Mildly dilated left atrium. All other cardiac chambers are of normal size. 4. Mild mitral regurgitation. 5. Trace to mild tricuspid regurgitation with estimated pulmonary systolic artery pressures of 36 mmHg. 6. No obvious intracardiac shunts. 7. No obvious intracardiac masses or thrombi. 8. No hemodynamically significant pericardial effusion. 9. Normal right-sided filling pressures. 10. Mildly dilated aortic root and ascending thoracic aorta without obvious dissection. Conclusion: Mildly compromised left ventricular systolic function with prominent trabeculation suggesting LV noncompaction. Trace to mild valvular regurgitations. Procedure: A two-dimensional transthoracic echocardiogram with color flow and Doppler was performed. The study quality was technically good. There is no prior echocardiogram noted for this patient. The patient was in normal sinus rhythm during the exam. Left Ventricle: The left ventricle is normal in size. There is no ventricular septal defect visualized. Trabeculae near apex are visualized. No thrombus is observed. The ejection fraction is estimated to be 40-45%. There is mild global hypokinesis of the left ventricle. Diastolic parameters suggest a relaxation abnormality of the left ventricle, consistent with probable normal filling pressures. Right Ventricle: The right ventricle is normal in size and function. Atria: The left atrium is mildly dilated. Right atrial size is normal. There is no Doppler evidence for an atrial septal defect. Mitral Valve: The mitral valve leaflets appear mildly thickened, but open well. There is mild mitral regurgitation. Aortic Valve: The aortic valve is trileaflet. The aortic valve opens well. There is trace aortic regurgitation. Tricuspid Valve: The tricuspid valve leaflets are thin and pliable. There is mild tricuspid regurgitation. The right ventricular systolic pressure is estimated to be at least 36 mmHg based on an estimated right atrial pressure of 8 mm Hg. Pulmonic Valve: The pulmonic valve leaflets are thin and pliable; valve motion is normal. There is trace pulmonic regurgitation. Great Vessels: The aortic root is mildly dilated. The ascending aorta is mildly enlarged. The pulmonary artery is normal size. The IVC is dilated (diameter is greater than 2.1 cm) yet it collapses greater than 50% with a sniff. This suggests a right atrial pressure of 8 mm Hg. Pericardium/ Pleura There is no pericardial effusion. There is no pleural effusion. MMode/2D Measurements & Calculations LVIDd: 5.3 cm LVOT diam: 2.5 cm LVIDs: 3.8 cm Ao root diam: 4.1 cm FS: 28.1 % asc Aorta Diam: 4.4 cm EPSS: 1.8 cm Ao Arch Diam (Prox Trans): 2.0 cm IVSd: 1.2 cm LVPWd: 1.1 cm LV [place]. diameter/BSA (cm/m^2): 2.7 LV sys. diameter/BSA (cm/m^2): 1.9 LA A2 area: 23.9 cm2 RA long axis: 5.8 cm LA A4 area: 19.4 cm2 RA area: 15.2 cm2 LA length (vol): 5.3 cm RA vol: 33.7 ml LA vol: 74.5 ml RA : 17.1 ml/m2 LA vol index: 37.8 ml/m2 IVC diam: 2.1 cm RVD1 (basal): 3.3 cm RVD2 (mid): 3.1 cm TAPSE: 1.8 cm Doppler Measurements & Calculations Ao V2 max: 136.5 cm/sec LVOT Max Donnell: 91.8 cm/sec Ao V2 mean: 101.4 cm/sec LV V1 max P.4 mmHg Ao max P.5 mmHg LV V1 VTI: 19.5 cm Ao mean P.5 mmHg KALYAN(I,D): 2.7 cm2 Ao V2 VTI: 34.4 cm KALYAN(V,D): 3.2 cm2 sev ratio: 0.57 KALYAN indexed to BSA (cm^2/m^2): 1.4 MV E max donnell: 36.2 cm/sec TR max donnell: 263.8 cm/sec MV A max donnell: 74.3 cm/sec TR max P.8 mmHg MV E/A: 0.49 PA V2 max: 60.5 cm/sec Med Peak E' Donnell: 3.5 cm/sec PA V2 mean: 43.0 cm/sec E/E' med: 10.5 PA mean P.83 mmHg Lat Peak E' Donnell: 3.1 cm/sec PA pr(Accel): 12.2 mmHg E/E' lat: 11.7 E/e' average: 11.1 MV dec time: 0.29 sec SV(LVOT): 92.5 ml Reading Physician:ROGER
--- NOTE | 2024-11-06 16:04 | DI.NM.S_ITS ---
DATE OF SERVICE: 10/30/2024 PROCEDURE: Pharmacological perfusion study. INDICATIONS: Syncope. RADIOPHARMACEUTICAL: 25.3 mCi technetium-99m Myoview IV was injected at stress and 24.3 mCi technetium-99m Myoview IV was injected at rest. CARDIAC STRESS: The patient underwent IV Lexiscan perfusion scan under the supervision of an attending staff. The patient remained hemodynamically stable. Resting blood pressure 130/91. Baseline rhythm is mild atrial bradycardia with left anterior fascicular block. During stress, no convincing new ischemic changes or new arrhythmias other than occasional PVCs. No chest pain. Minimal dyspnea during Lexiscan infusion. RAW DATA: There is increased subdiaphragmatic activity. Gut shadow encroaching the inferior and apical border of the heart. GATED STUDY: Stress LV ejection fraction 50% without any significant wall motion abnormalities. Resting end-diastolic volume 176 mL. TID ratio 0.97, which is within normal limits. Lung/heart ratio 0.58, which is abnormal. MYOCARDIAL PERFUSION SCAN: Stress supine, resting supine, and stress prone images were compared to each other. Stress supine images revealed small size, moderately decreased perfusion of basal inferior wall and distal inferolateral wall. Resting supine images revealed moderate- size, moderately decreased perfusion of inferolateral wall. During stress prone images, significant improvement in inferior wall, however, distal inferolateral wall defect remained there. No reversible ischemia. CONCLUSIONS: 1. No obvious reversible ischemia. 2. Inferolateral defect which was seen during both stress supine and resting supine images improved during stress prone images; however, patient had persistent small-size distal inferolateral defect. On raw images, there is increased subdiaphragmatic activity and gut shadow encroaching the inferior and apical border of the heart. This could be due to persistent tissue attenuation artifact; however, cannot rule out small distal inferolateral infarction. Abnormal lung/heart ratio is suggestive of elevated LV filling pressure. LV ejection fraction post stress 50% and resting LV ejection fraction 51%. As far as perfusion scan is concerned in absence of reversible ischemia, not a high-risk perfusion scan. Correlate clinically. Baseline rhythm was atrial bradycardia. DimasunshineNilesh pastor - MATI/fn/OH doc#: [id number]/job#: [id number] dd: 11/06/2024 13:03:00 dt: 11/06/2024 15:53:00 DICTATING MD/COPIES TO: Joe Georges MD COPIES MNE: DWIGHT;
== END ==
PROVIDERS: PCP Family Medicine; Referring Provider Internal Medicine Cardiovascular Disease; Visit Provider Internal Medicine Cardiovascular Disease
DX: I08.1 Rheumatic disorders of both mitral and tricuspid valves (principal); I77.89 Other specified disorders of arteries and arterioles; I77.810 Thoracic aortic ectasia; R55 Syncope and collapse
CPT/HCPCS: 93306

== ENCOUNTER → 2024-12-31 06:41 | Outpatient (CLI) | payer OTHER, SELFPAY ==
--- NOTE | 2024-12-31 06:42 | DI.RAD.S_ITS ---
PROCEDURE: XR KNEE RT 3V INDICATIONS: Right knee pain - hx of old injury TECHNIQUE: 3 views of the knee were acquired. COMPARISON: None. FINDINGS: Bones: No fractures or dislocations. No suspicious bony lesions. Moderate to severe medial and moderate lateral tibiofemoral and patellofemoral compartment narrowing with associated osteophytosis. Soft tissues: No joint effusion. No suspicious soft tissue calcifications. 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 Dictated by: Aravind Wilson M.D. on 12/31/2024 at 15:42 Approved by: Aravind Wilson M.D. on 12/31/2024 at 15:43
== END ==
PROVIDERS: PCP Family Medicine; Referring Provider Physician Assistant; Visit Provider Physician Assistant
DX: M17.11 Unilateral primary osteoarthritis, right knee (principal); M25.561 Pain in right knee
CPT/HCPCS: 73562

== ENCOUNTER → 2025-05-21 06:29 | Outpatient (CLI) | payer OTHER, SELFPAY ==
[2025-05-21 08:03] LABS: Add Manual Diff / Slide Review NO; Hematocrit 44.0 % (41-53); Hemoglobin 14.7 g/dL (13.5-17.5); Lymphocytes Absolute Auto 1900 /uL (1100-4500); Mean Corpuscular HGB Conc 33.4 % (30-36); Mean Corpuscular Hemoglobin 28.3 PG (26-34); Mean Corpuscular Volume 84.7 fL (80-100); Platelet Count 177 X10^3/uL (150-400)
[2025-05-21 08:57] LABS: Blood Urea Nitrogen 19 mg/dL (9-20); Calcium 10.3 mg/dL (8.4-10.2); Carbon Dioxide 30 mmol/L (22-32); Chloride 101 mmol/L (98-107); Estimated Glomerular Filt Rate > 60 mL/min (>60); Glucose 80 mg/dL (70-99); HEMOLYSIS < 15 (0-50); Potassium 4.1 mmol/L (3.4-5.1); Sodium 139 mmol/L (137-145)
[2025-05-21 09:14] LABS: Cholesterol 166 mg/dL (140-199); HDL Cholesterol 55 mg/dL (40-60); Triglycerides 59 mg/dL (35-150)
[2025-05-21 10:18] LABS: TSH w/ Reflex to FT4 1.86 uIU/mL (0.47-4.68)
== END ==
PROVIDERS: PCP Family Medicine; Referring Provider Internal Medicine Cardiovascular Disease; Visit Provider Internal Medicine Cardiovascular Disease
DX: I10 Essential (primary) hypertension (principal); I42.8 Other cardiomyopathies; E21.3 Hyperparathyroidism, unspecified
CPT/HCPCS: 36415; 80048; 80061; 84443; 85025

== ENCOUNTER → 2025-08-24 06:30 | Outpatient (CLI) | payer OTHER, SELFPAY ==
[2025-08-24 07:48] LABS: Blood Urea Nitrogen 18 mg/dL (9-20); Calcium 9.4 mg/dL (8.4-10.2); Carbon Dioxide 27 mmol/L (22-32); Chloride 108 mmol/L (98-107); Estimated Glomerular Filt Rate > 60 mL/min (>60); Glucose 92 mg/dL (70-99); HEMOLYSIS 22 (0-50); Potassium 4.8 mmol/L (3.4-5.1); Sodium 143 mmol/L (137-145)
== END ==
PROVIDERS: PCP Family Medicine; Referring Provider Nurse Practitioner; Visit Provider Nurse Practitioner
DX: I42.8 Other cardiomyopathies (principal); I50.22 Chronic systolic (congestive) heart failure
CPT/HCPCS: 36415; 80048